=== PATIENT | female | born 1990 | race Caucasian/White ===

== ENCOUNTER 2020-06-28 04:48 | Emergency (ER) | payer OTHER ==
[~2020-06-28] VITALS: Ht 170.2 cm; Wt 105.0 kg
[~2020-06-28 04:48] MED LIST: MULTTAB20 PO; REGL10TA6 PO
[2020-06-28] MEDS ORDERED: IBUP80TA PO (04:52)
[2020-06-28] MEDS ORDERED: ACETAMINOPHEN TAB 650MG DOSE (2X325MG) PO ONE (05:30)
[2020-06-28] MEDS ORDERED: KETOROLAC 30 MG/ML 1ML VIAL IV ONE (05:30)
[2020-06-28 06:23] LABS: URINE PREG TEST NEGATIVE (NEGATIVE)
[2020-06-28 06:30] LABS: BASO % 0.3 % (0.0-1.0); EOS # 0.1 10^3/uL (0.0-0.5); EOS % 1.1 % (0.0-3.0); LYMPH # 2.2 10^3/uL (1.5-5.0); LYMPH % 24.6 % (24.0-44.0); MEAN CORPUSCULAR HEMOGLOBIN 28.1 pg (27.0-33.0); MEAN CORPUSCULAR HGB CONC 31.4 g/dl (32.0-36.5); MEAN CORPUSCULAR VOLUME 89.3 fl (80.0-96.0); MONO # 0.6 10^3/uL (0.0-0.8); MONO % 6.4 % (2.0-8.0); NEUTROPHILS # 5.9 10^3/uL (1.5-8.5); NEUTROPHILS % 67.1 % (36.0-66.0); PLATELET COUNT, AUTOMATED 190 10^3/uL (150-450); RED BLOOD COUNT 3.92 10^6/uL (4.00-5.40); WHITE BLOOD COUNT 8.7 10^3/uL (4.0-10.0)
[2020-06-28 06:38] LABS: BLOOD UREA NITROGEN 17 MG/DL (7-18); CALCIUM LEVEL 8.7 MG/DL (8.5-10.1); CARBON DIOXIDE LEVEL 23 MEQ/L (21-32); CHLORIDE LEVEL 107 MEQ/L (98-107); CREATININE FOR GFR 0.78 MG/DL (0.55-1.30); GLOMERULAR FILTRATION RATE > 60.0 (>60); GLUCOSE, FASTING 108 MG/DL (70-100); POTASSIUM SERUM 4.1 MEQ/L (3.5-5.1); SODIUM LEVEL 140 MEQ/L (136-145)
--- NOTE | 2020-06-28 07:28 | REPVR ---
PROCEDURE INFORMATION: Exam: XR Lumbosacral Spine, 4 or 5 Views Exam date and time: 06/28/2020 5:23 AM Age: 30 years old Clinical indication: Other: Back pain TECHNIQUE: Imaging protocol: XR of the lumbosacral spine, 4 or 5 views. COMPARISON: No relevant prior studies available. FINDINGS: Bones/joints: Normal. No acute fracture. Normal alignment. Soft tissues: Unremarkable. IMPRESSION: No acute findings. Electronically signed by: Demetrius Johnson On 06/28/2020 07:28:33 AM
--- NOTE | 2020-06-28 07:32 | REPVR ---
PROCEDURE INFORMATION: Exam: XR Thoracic Spine, 3 Views Exam date and time: 06/28/2020 5:23 AM Age: 30 years old Clinical indication: Other: Back pain TECHNIQUE: Imaging protocol: XR of the thoracic spine, 3 views. COMPARISON: No relevant prior studies available. FINDINGS: Bones/joints: There is questionable minimal mid to upper thoracic spine dextroscoliosis. The vertebral body heights are maintained. There is no subluxation. Soft tissues: Unremarkable. IMPRESSION: Questionable minimal mid to upper thoracic spine dextroscoliosis. Electronically signed by: Demetrius Johnson On 06/28/2020 07:32:32 AM
[2020-06-28 07:40] VITALS: BP 111/60
== END 2020-06-28 07:42 | disposition home or self-care (01) ==
LOC: M ED 04:48
DX: M54.9 Dorsalgia, unspecified (principal); J45.909 Unspecified asthma, uncomplicated
CPT/HCPCS: 72072; 72110; 80048; 81001; 84703; 85025; 87086; 96374; 99284; J1885

== ENCOUNTER 2021-07-24 19:14 | Emergency (ER) | payer OTHER ==
[~2021-07-24] VITALS: Ht 170.2 cm; Wt 90.9 kg
[~2021-07-24 19:14] MED LIST changes: +IBUP80TA PO
[2021-07-24 22:55] VITALS: BP 116/63
== END 2021-07-24 22:56 | disposition home or self-care (01) ==
LOC: M ED 19:14
DX: R51.9 Headache, unspecified (principal); R42 Dizziness and giddiness; R00.2 Palpitations; J45.909 Unspecified asthma, uncomplicated